=== PATIENT | male | born 1965 | race Caucasian/White ===

== ENCOUNTER → 2018-11-10 | Outpatient (CLI) | payer OTHER ==
[~2018-11-10] MED LIST: NEXI40CA PO
--- NOTE | 2018-11-14 13:30 | SLEEPCENT ---
DATE OF PROCEDURE:11/10/2018 ORDERING PROVIDER: Dr. Kirkland Nocturnal polysomnography was performed for the titration of pressure therapy in this patient with obstructive sleep apnea syndrome based on clinical criteria, confirmed by home testing revealing a respiratory event index of 5. For testing, the patient was fit with a ResMed Air Fit F20 full face mask, 4 cm of water pressure were applied to the circuit and the lights were extinguished. 7 hours and 53 minutes of data were reviewed. There are 432 minutes of sleep identified. Sleep latency was normal at 15.5 minutes. Rapid eye movement (REM) latency was mildly prolonged at 114 minutes. Sleep architecture was good with four REM cycles. Overall sleep efficiency was 92.8%. The patient's electrocardiogram showed sinus rhythm with an average heart rate of 52 beats per minute. Electroencephalogram (EEG) showed normal waveforms for awake and sleep. Respiratory events were fully palliated with C-PAP of pressure of +7. There was some limb activity noted in background. Limb movement arousal index was borderline at 6.9. IMPRESSION: Obstructive sleep apnea syndrome (G47.33). RECOMMENDATIONS: Nightly use of pressure therapy 7 cm of water.
== END ==
LOC: M SLEEP 20:00
PROVIDERS: ATTEND Internal Medicine Pulmonary Disease
DX: G47.33 Obstructive sleep apnea (adult) (pediatric) (principal)

== ENCOUNTER → 2019-02-26 | Outpatient (CLI) | payer OTHER ==
[~2019-02-26] MED LIST changes: +ASPI81CH33 PO; +E-Z-GAS II EFFERVESCENT PACKET (SODIUM BICARB./CITRIC ACID/SIMETHICONE) As Ordered ONE; +E-Z-HD 98% w/w 340GM SUSP BTL As Ordered ONE; +E-Z-PAQUE 96% w/w SUSP 176GM BTL As Ordered ONE
--- NOTE | 2019-02-27 20:34 | REP ---
Examination Requested: Esophagram Barium Swallow Reason For Exam/Comment: Dysphasia, heartburn Esophagram: The procedure was performed RONALD Mayer, under the direct supervision of Dr. Shea. The images were reviewed with Dr. Shea. A single PA chest x-ray is submitted as a center consultant film. The superior mediastinal structures are midline. The heart size is within normal limits. The lungs are clear. Liquid barium and gas producing granules were given in the erect position as well as liquid barium in the prone oblique position, in order to perform a double contrast esophagram examination. Oral and pharyngeal stages of the examination were unremarkable. Esophageal transport is efficient and there is no stricture, or mucosal ring noted. There is mild diffuse mucosal irregularity of the distal esophagus, suspicious for esophagitis. There is no hiatal hernia noted. Gastroesophageal reflux is not visualized throughout the course of the exam. Impression: 1. Mild diffuse mucosal irregularities of the distal esophagus, suspicious for esophagitis. 0.8 minutes of fluoroscopy time was utilized for this procedure. Some fluoroscopic images are performed with last image hold technology. These images require no additional radiation. Reviewed by RONALD Brantley 02/26/2019 04:33 P Electronically Signed by Luis Miguel Shea MD 02/27/2019 08:25 P
== END ==
LOC: M RAD 07:11
PROVIDERS: ATTEND Physician Assistant Medical
DX: R13.10 Dysphagia, unspecified (principal); R12 Heartburn

== ENCOUNTER 2019-03-18 11:40 | Day surgery (SDC) | payer OTHER ==
[~2019-03-18] VITALS: Ht 182.9 cm; Wt 94.8 kg
[~2019-03-18 11:40] MED LIST changes: -E-Z-GAS II EFFERVESCENT PACKET (SODIUM BICARB./CITRIC ACID/SIMETHICONE) As Ordered ONE; -E-Z-HD 98% w/w 340GM SUSP BTL As Ordered ONE; -E-Z-PAQUE 96% w/w SUSP 176GM BTL As Ordered ONE
[2019-03-18] MEDS ORDERED: NS 1,000 ML IV ONE (12:00)
[2019-03-18] MEDS ORDERED: PROPOFOL 200 MG/20 ML VIAL As Ordered ONE (13:44)
[2019-03-18] MEDS ORDERED: LIDOCAINE 2% INJ 100 MG/5 ML SDV (FOR ANES.) As Ordered ONE (13:44)
--- NOTE | 2019-03-18 13:45 | ROOR ---
Patient Name: Michael Schaffer Procedure Date: 03/18/2019 1:31 PM Date of : 1965 Age: 54 Room: [facility] Gender: Male Note Status: Finalized Procedure: Upper GI endoscopy Indications: Dysphagia, Heartburn Providers: Stephen ANGLIN MD Referring MD: Aniceto Proctor DO Requesting Provider: Medicines: Monitored Anesthesia Care Complications: No immediate complications. Procedure: Pre-Anesthesia Assessment: - The heart rate, respiratory rate, oxygen saturations, blood pressure, adequacy of pulmonary ventilation, and response to care were monitored throughout the procedure. The Endoscope was introduced through the mouth, and advanced to the second part of duodenum. The upper GI endoscopy was accomplished without difficulty. The patient tolerated the procedure well. Findings: Non-severe esophagitis was found at the gastroesophageal junction. Biopsies were taken with a cold forceps for histology. The exam of the esophagus was otherwise normal. The entire examined stomach was normal. The examined duodenum was normal. Impression: - Non-severe reflux esophagitis. Rule out Garner's esophagus. Biopsied. - Normal stomach. - Normal examined duodenum. Recommendation: - Observe patient's clinical course. - Use Prilosec (omeprazole) 40 mg PO daily for 3 months. - (the script was sent to your pharmacy on file) Stephen Anglin MD Stephen ANGLIN MD 03/18/2019 1:45:17 PM Electronically signed by Stephen ANGLIN MD Number of Addenda: 0 Note Initiated On: 03/18/2019 1:31 PM Estimated Blood Loss: Estimated blood loss: none.
--- NOTE | 2019-03-18 14:05 | ROOR ---
Patient Name: Michael Schaffer Procedure Date: 03/18/2019 1:32 PM Date of : 1965 Age: 54 Gender: Male Note Status: Finalized Procedure: Colonoscopy Indications: High risk colon cancer surveillance: Personal history of colonic polyps, Last colonoscopy: December 2015 Providers: Stephen ANGLIN MD Referring MD: Aniceto Proctor DO Requesting Provider: Medicines: Monitored Anesthesia Care Complications: No immediate complications. Procedure: Pre-Anesthesia Assessment: - The heart rate, respiratory rate, oxygen saturations, blood pressure, adequacy of pulmonary ventilation, and response to care were monitored throughout the procedure. The Colonoscope was introduced through the anus and advanced to the terminal ileum, with identification of the appendiceal orifice and IC valve. The colonoscopy was performed without difficulty. The patient tolerated the procedure well. The quality of the bowel preparation was good. Findings: The perianal and digital rectal examinations were normal. Two sessile polyps were found in the cecum. The polyps were 3 to 4 mm in size. These polyps were removed with a cold snare. Resection and retrieval were complete. A 4 mm polyp was found in the splenic flexure. The polyp was sessile. The polyp was removed with a cold snare. Resection and retrieval were complete. A 4 mm polyp was found in the rectum (benign-appearing lesion). The polyp was semi-sessile. The polyp was removed with a cold snare. Resection and retrieval were complete. To prevent bleeding after the polypectomy, one hemostatic clip was successfully placed. Retroflexion in the right colon was performed. Small Internal Hemorrhoids. The exam was otherwise without abnormality on direct and retroflexion views. Impression: - Two 3 to 4 mm polyps in the cecum, removed with a cold snare. Resected and retrieved. - One 4 mm polyp at the splenic flexure, removed with a cold snare. Resected and retrieved. - One benign appearing 4 mm polyp in the rectum, removed with a cold snare. Resected and retrieved. Clip was placed. - Small Internal Hemorrhoids. - The examination was otherwise normal on direct and retroflexion views. Recommendation: - Telephone endoscopist for pathology results in 2 weeks. - If the pathology report reveals adenomatous tissue, then repeat the colonoscopy for surveillance in 3 years. - If the pathology report indicates hyperplastic polyp, then repeat colonoscopy for surveillance in 5 years. Stephen Anglin MD Stephen ANGLIN MD 03/18/2019 2:05:19 PM Electronically signed by Stephen ANGLIN MD Number of Addenda: 0 Note Initiated On: 03/18/2019 1:32 PM Estimated Blood Loss: Estimated blood loss: none.
[2019-03-18 14:44] VITALS: BP 133/77
== END 2019-03-18 14:46 | disposition home or self-care (01) ==
LOC: M OPP 11:40
PROVIDERS: ATTEND Internal Medicine Gastroenterology
DX: Z12.11 Encounter for screening for malignant neoplasm of colon (principal); Z86.010 Personal history of colon polyps; D12.0 Benign neoplasm of cecum; D12.3 Benign neoplasm of transverse colon; K62.1 Rectal polyp; K64.8 Other hemorrhoids; R13.10 Dysphagia, unspecified; R12 Heartburn; K21.0 Gastro-esophageal reflux disease with esophagitis; I48.91 Unspecified atrial fibrillation; G47.30 Sleep apnea, unspecified; R00.8 Other abnormalities of heart beat; R06.83 Snoring; Z79.82 Long term (current) use of aspirin

== ENCOUNTER 2022-07-25 10:07 | Day surgery (SDC) | payer OTHER ==
[~2022-07-25] VITALS: Ht 182.9 cm; Wt 97.5 kg
[~2022-07-25 10:07] MED LIST changes: +ATEN50TA2 PO; +NS 1,000 ML IV ONE; +OMEP40CA5 PO
[2022-07-25] MEDS ORDERED: propofoL 200 MG/20 ML VIAL As Ordered ONE (12:19)
[2022-07-25] MEDS ORDERED: fentaNYL 100 MCG/2 ML INJECTION As Ordered ONE (12:21)
[2022-07-25 13:10] VITALS: BP 132/59
== END 2022-07-25 13:26 | disposition home or self-care (01) ==
LOC: M OPP 10:07
PROVIDERS: ATTEND Internal Medicine Gastroenterology
DX: Z12.11 Encounter for screening for malignant neoplasm of colon (principal); Z86.010 Personal history of colon polyps; K62.1 Rectal polyp; K57.30 Diverticulosis of large intestine without perforation or abscess without bleeding; K64.8 Other hemorrhoids; K22.89 Other specified disease of esophagus; K22.70 Barrett's esophagus without dysplasia; Z79.82 Long term (current) use of aspirin; Z79.899 Other long term (current) drug therapy; Z80.0 Family history of malignant neoplasm of digestive organs; I48.91 Unspecified atrial fibrillation; G47.30 Sleep apnea, unspecified; Z99.89 Dependence on other enabling machines and devices
CPT/HCPCS: 43239; 45381; 45385; 88305; J3010